=== PATIENT | male | born 1965 | race Caucasian/White ===

== ENCOUNTER 2022-05-05 08:31 | Outpatient (CLI) | payer BC, SELFPAY ==
[2022-05-05 10:21] LABS: Chloride* 101 mmol/L (96-114); Potassium* 3.4 mmol/L (3.6-5.1); Sodium* 136 mmol/L (135-149)
[2022-05-05 10:24] LABS: Alanine Aminotransferase* 29 U/L (4-50); Blood Urea Nitrogen* 17 mg/dL (7-30); Carbon Dioxide* 31 mmol/L (20-32); Cholesterol* 133 mg/dL (90-199); Estimated Glomerular Filt Rate 88 ml/min; Glucose* 97 mg/dL (60-115); Triglycerides* 108 mg/dL (40-149)
[2022-05-05 10:25] LABS: Calcium* 8.9 mg/dL (8.4-10.6); HDL Cholesterol* 43 mg/dL (>=40); LDL Cholesterol Calculated 68 mg/dL (<100)
[2022-05-05 10:53] LABS: PSA Screen* 0.52 ng/mL (0.10-4.00)
[2022-05-11 17:19] LABS: FACV Specimen Whole Blood; Factor V Leiden (F5) Mutation Heterozygous
== END 2022-05-05 08:32 | disposition home or self-care (01) ==
PROVIDERS: PCP Family Medicine; Visit Provider Family Medicine
DX: I10 Essential (primary) hypertension (principal); E78.5 Hyperlipidemia, unspecified; I82.409 Acute embolism and thrombosis of unspecified deep veins of unspecified lower extremity; Z12.5 Encounter for screening for malignant neoplasm of prostate; K50.90 Crohn's disease, unspecified, without complications; F41.1 Generalized anxiety disorder
CPT/HCPCS: 80048; 80061; 81241; 83735; 84153; 84460

== ENCOUNTER 2023-06-01 09:13 | Outpatient (CLI) | payer BC, SELFPAY ==
--- OUTSIDE RECORDS SUMMARY | 2023-06-01 09:17 | XMS_ITS | Clinical Summary ---
Author Name Unknown Organization [facility] Address [place], [place] [address] Care Team Providers Care Dry Wall Sprayer Name Role Phone Scott Mccormick Primary Care Provider [phone] Allergies Active Allergy Reactions Criticality Noted Date Comments Cat Dander Other - Describe In Comment Field 08/23/2020 Dog Dander Other - Describe In Comment Field 08/23/2020 Dust Mites Other - Describe In Comment Field 08/23/2020 House Dust Other - Describe In Comment Field 08/23/2020 Mold Other - Describe In Comment Field 08/23/2020 Tree And Shrub Pollen Other - Describe I n Comment Field 08/23/2020 Medications Medication Sig Dispensed Refills Start Date End Date Status PRILOSEC OTC 20 MG TAB 1 tablet every day 0 08/13/2006 Active DILTIAZEM SR 240 MG CAP take 1 capsule (240mg) by oral route once daily 0 08/13/2006 Active NASONEX 50 MCG/ACTUATION SPRAY inhale 2 sprays in each nostril by nasal route once daily 0 08/13/2006 Active LISINOPRIL-HYDROCHLOR OTHIAZIDE 20 MG-25 MG TAB take 1 tablet by oral route once daily 0 08/13/2006 Active fluticasone-salmetero l (ADVAIR DISKUS) 250-50 mcg/Dose diskus inhalerIndications:Mi ld persistent asthma Inhale 1 Puff by mouth every 12 hours. 3 Inhaler 0 2014 Active cetirizine (ZYRTEC) 10 mg tablet Take 1 tablet by mouth once daily. 0 01/16/2017 Active atorvastatin (LIPITOR) 40 mg tablet Take 40 mg by mouth once daily. 0 Active albuterol HFA (PROAIR HFA) 90 mcg/actuation inhalerIndications:Co ugh Inhale 1-2 Puffs by mouth every 4 hours if needed. 1 Inhaler 0 06/03/2019 Active benzonatate (Tessalon Perles) 100 mg capsuleIndications:Br onchitis with bronchospasm Take 1 Capsule (100 mg) by mouth 3 times daily if needed for Cough. 30 Capsule 0 11/05/2020 Active azithromycin (Zithromax Z-Tevin) 250 mg tabletIndications:Bro nchitis with bronchospasm Take 500 mg (2 tabs) by mouth on day 1, then 250 mg (1 tab) daily for days 2-5. 6 Tablet 0 11/05/2020 Active Active Problems Problem Noted Date Diagnosed Date Mild persistent asthma 06/07/2011 Allergic rhinitis, cause unspecified Resolved Problems Problem Noted Date Diagnosed Date Resolved Date Asthma, exercise induced Overview: Worse with exposure to allergens Immunizations Name Administration Dates Next Due COVID-19 vaccine (Scan•Jour 30mcg/0.3mL) PF, MDV 05/02/2021,09/14/2020,08/24/2020 Influenza, IIV3 (Age >=3 years) 01/23/2013,02/13,06/08/2006 Influenza, IIV4 (=>6mos) MDV 04/04/2016,01/21/20 15 Td (Age >=7 Years) 08/03/2003 Tdap 08/15/2012 Family History Medical History Relation Name Comments Other Father of pulmona ry embolism Heart Disease Mother hx [place] with CAB G and CHF Hyperlipidemia Mother Hypertension Mother Hyperlipidemia Sister 1 Lien Hyperlipidemia Sister 2 Maria Luz Relation Name Status Comments Father Mother Sister 1 Lien Sister 2 Maria Luz Social History Tobacco Use Types Packs/Day Years Used Date Smoking Tobacco: Never Smokeless Tobacco: Never Tobacco Cessation:Counseling Given: Yes Alcohol Use Standard Drinks/Week Comments Yes 0 (1 standard drink = 0.6 oz pur e alcohol) occasional use PHQ-2 Answer Date Recorded PHQ-2 Score 0 06/03/2019 Social Connections Answer Date Recorded Frequency of Communication with Friends and Fami ly Not on file 04/23/2021 Financial Resource Strain Answer Date R ecorded Difficulty of Paying Living Expenses Not on file 04/23/2021 Difficulty of Paying Living Expenses Not on file 04/23/2021 Sex and Gender Information Value Date Recorded Sex Assigned at Not on file Gender Identity Not on file Sexual Orientation Not on file Obstetrics History Last Filed Vital Signs Vital Sign Reading Time Taken Comments Blood Pressure 121/75 11/05/2020 11:59 AM CDT Pulse 87 11/05/2020 11:59 AM CDT Temperature 37 ??C (98.6 ??F) 11/05/2020 11:59 AM CDT Respiratory Rate 16 05/03/2018 1:25 PM AQUACULTURE FARM MANAGER Oxygen Saturation 98% 11/05/2020 11:59 AM CDT Inhaled Oxygen Concentration - - Weight 103.4 kg (228 lb) 11/05/2020 11:59 AM CDT Height 172.9 cm (5' 8.07) 06/03/2019 2:18 PM CS T Body Mass Index 34.6 06/03/2019 2:18 PM AQUACULTURE FARM MANAGER Plan of Treatment Health Maintenance Due Date Last Done Comments HIV for age 15-65 1980 Hepatitis C screening for age 18-79 07/08/1983 Colonoscopy through age 75 2010 Lipids for age 45-75 2010 Zoster (shingles) series for age 50+ (1 of 2) 07/08/2015 BMI (ht and wt on same day) for age 18+ 06/03/2020 06/03/2019, 01/16/2017 Depression screening for age 12+ 06/03/2020 06/03/2019, 01/16/2017 Tetanus booster 08/15/2022 08/15/2012, 08/03/2003 COVID-19 vaccine series ( season) 2022 05/02/2021, 09/14/2020, 08/24/2020 Influenza for age 50-64 12/22/2022 04/04/20 16, 01/20/2015, 01/23/2013, Additional history exists Tdap Completed 08/15/2012 Pneumococcal series for age 6-64 Aged Out No longer eligible based on patient's age to complete this topic Advance Directives Latest Code Status on File Code Status Date Activated Date Inactivated Comments Full Code 05/03/2018 10:06 AM 05/03/2018 3:50 PM Care Teams Dry Wall Sprayer Relationship Specialty Start Date End Date Scott Mccormick [address] [place] [address] PCP - General 08/13/06
--- OUTSIDE RECORDS SUMMARY | 2023-06-01 09:17 | XMS_ITS | Encounter Summary ---
Author Name Unknown Organization [facility] Address [address] [facility] [place] [address] Care Team Providers Care Shorer Name Role Phone DoctorLluvia MD Primary Care Provider Scott Cochran MD Primary Care Provider [phone] Encounter Details Date Type Department Care Team (Late st Contact Info) Description 05/01/2002 Office Visit-[facility] [address] [address] Unknown, DoctorMD Social History Tobacco Use Types Packs/Day Years Used Date Smoking Tobacco: Never Assessed Sex and Gender Information Value Date Recorded Sex Assigned at Not on file Gender Identity Not on file Sexual Orientation Not on file documented as of this encounter Progress Notes * Unknown, MD Onel - 05/28/2002 4:25 PM CST DATE: 05/01/2002 GABRIELE ADAME DATE OF : 1965 AGE: [age] years old Referring Physician: SCOTT MALONEY CURRENT DIAGNOSES 1. - Hypertension, benign, 401.1 2. - Chest Pain Precordial, 786.51 3. Chest pain, 786.50 ALLERGIES MEDICATIONS 1. Prevacid 30 mg, 1 p.o. q.d. 2. Adriana 180 mg, Dose/instruction UK CHIEF COMPLAINTS F/u holter HISTORY OF PRESENT ILLNESS I had the pleasure of meeting your patient, Mr. Gabriele Adame, today at the [facility]. As you know, he is a pleasant 36-year-old male who is referred in for both PVCs and chest pain. The patient has been aware of palpitations although he did not know what they were for many, many years. He described these as flip-flops or thuds that could come on at any time but are rather frequent.He has no dizzy spells or syncope. His second issue is of chest pain. He was actually seen in the Emergency Room for this. This is very atypical. He describes sharp one second flashes of pain in the left chest, occasionally going in the left neck or left shoulder and arm. He may feel occasionally short of breath for a moment with this. He can exercise without any problems. The chest pain does not come on with exertion and is related to food or body position. His weight has been a bit up and down, depending on his diet and his motivation to exercise. He does have six to eight caffeinated products per day which are obviously going to be an important part of the story. As you know, his Holter monitor from your office showed frequent unifocal PVCs up to 300 per times per hour. I reviewed the Holter monitor and concur with the diagnosis. There were also rare PACs and possibly one ventricular couplet and some runs of ventricular bigeminy. The patient has no history of previous heart disease. He tells me thyroid tests and regular laboratories at your office were normal. PAST HISTORY Past Medical Illnesses: PUD, allergy Surgical Procedures: oral surgery FAMILY HISTORY: Father - Age 57, kapadia rich disease, obesity; Mother - CAD and hypercholesterolemia; Sister 1 - hypercholesterolemia; Sister 2 - hypercholesterolemia; SOCIAL HISTORY Alcohol Use - drinks occasionally; Smoking - does not smoke; Diet - regular diet and 6-8 caffeine products/day; Exercise - no regular exercise; REVIEW OF SYSTEMS GENERAL denies recent weight loss, weight gain, fever or chills or change in exercise tolerance., (intentional weight change with exercise) INTEGUMENTARY denies any change in hair or nails, rashes, or skin lesions. EYES wears eye glasses/contact lenses EARS, NOSE, THROAT, MOUTH denies any hearing loss, epistaxis, hoarseness or difficulty speaking. RESPIRATORY snoring CARDIOVASCULAR chest discomfort, chest pain, palpitations ABDOMINAL denies ulcer disease, hematochezia or melena. MUSCULOSKELETAL denies any history of venous insufficiency, arthritic symptoms or back problems. NEUROLOGICAL numbness, hands and feet while sleeping PSYCHIATRIC stress ENDOCRINE denies any history of weight change, heat/cold intolerance, polydipsia, or polyuria HEMATOLOGICAL/IMMUNOLOGIC denies any food allergies, seasonal allergies, bleeding disorders. PHYSICAL EXAMINATION VITAL SIGNS: Blood Pressure: 152/92 Pulse- 84.00/min. Weight- 206.40 lbs. Height- .00 Temperature- .00 CONSTITUTIONAL cooperative, alert and oriented,well developed, well nourished, in no acute distress. SKIN warm and dry to touch, no apparent skin lesions, or masses noted. HEAD normocephalic, atraumatic EYES Pupils equal and round, conjunctivae and lids unremarkable, sclera white, no xanthalasma ENT no pallor or cyanosis, dentition good NECK carotid pulses are full and equal bilaterally, JVP normal, no carotid bruit, no thyromegaly CHEST normal symmetry, no tenderness to palpation, normal respiratory excursion, no intercostal retraction, no use of accessory muscles, clear to auscultation and percussion. CARDIAC regular rhythm, S1 normal, S2 normal, No S3 or S4, Apical impulse not displaced, no murmurs, gallops or rubs detected. ABDOMEN abdomen soft, bowel sounds normoactive, no masses, no hepatosplenomegaly, non- tender, no bruits PERIPHERAL PULSES pulses full and equal in all extremities, no bruits auscultated. EXTREMITIES & BACK no deformities, clubbing, cyanosis, erythema or edema observed. There are no spinal abnormalities noted. Normal muscle strength and tone. NEUROLOGICAL no gross motor deficits noted, affect appropriate, oriented to time, person and place. MEDICATIONS UPDATED TODAY: Prevacid 30 mg, 1 p.o. q.d., DIRECTED Adriana 180 mg, Dose/instruction UK, DIRECTED IMPRESSIONS/PLAN This patient probably has hypertension. I repeated the blood pressure several times and I always got between 140 and 150 systolic with diastolics between 90 and 106. Rather than start him on an antihypertensive, I recommended he come off caffeine completely. He probably will have some withdrawal syndrome which I warned him about. He will work on diet and exercise. I have loaned him a home blood pressure monitor to use for two weeks and we will recheck his values when he comes back in. I will also do a stress echocardiogram to assure him he does not have underlying coronary disease. We will also use the stress echocardiogram to assess for left ventricular hypertrophy. Certainly if there is left ventricular hypertrophy on the echo, it would confirm that he does indeed have high blood pressure. If he does have blood pressure, we would probably use a beta-brenda as the first treatment since this would probably treat the PVCs and the hypertension, otherwise, we can use any of the various antihypertensives. The patient will bring me his cholesterol panel after he gets the results from your office. I told him that if his heart is structurally normal on the stress test, the PVCs themselves are benign and do not require specific treatment especially since they barely bother him. Again as I mentioned above if we were to treat them, we would probably start with a beta-brenda. We would reserve the use of type IB or IC antiarrhythmics if they are severely affecting his lifestyle. If you could also forward his electrolytes, urinalysis or any other tests you may have done as partof his workup for hypertension, I would appreciate that. TODAYS ORDERS 1. Treadmill Stress Echo 1 week ALERT ECHO LAB-CHECK FOR LVH 2. Return Visit 3 weeks F/U BP AND GXT Mauricio Roberto M.D. documented in this encounter Plan of Treatment Not on file documented as of this encounter Visit Diagnoses Not on filedocumented in this encounter Care Teams Shorer Relationship Specialty Start Date End Date Doctor, Lluvia, PCP - General 06/07/01 12/21/16 Scott Maloney MD [address] [phone] PCP - General Family Practice 12/20/17 documented as of this encounter
--- OUTSIDE RECORDS SUMMARY | 2023-06-01 09:17 | XMS_ITS | Encounter Summary ---
Author Name Unknown Organization [facility] Address [address] [facility] [place] [address] Care Team Providers Care Community Center Coordinator Name Role Phone DoctorLluvia MD Primary Care Provider Scott Cochran MD Primary Care Provider [phone] Encounter Details Date Type Department Care Team (Late st Contact Info) Description 05/28/2002 Office Visit-[facility] [address] [address] Unknown, DoctorMD Social History Tobacco Use Types Packs/Day Years Used Date Smoking Tobacco: Never Assessed Sex and Gender Information Value Date Recorded Sex Assigned at Not on file Gender Identity Not on file Sexual Orientation Not on file documented as of this encounter Progress Notes * Unknown, MD Onel - 05/30/2002 1:28 PM CST DATE: 05/28/2002 GABRIELE ADAME DATE OF : 1965 AGE: [age] years old Referring Physician: SCOTT MALONEY CURRENT DIAGNOSES 1. - Hypertension, benign, 401.1 2. - Chest Pain Precordial, 786.51 3. Chest pain, 786.50 ALLERGIES MEDICATIONS 1. Prevacid 30 mg, 1 p.o. q.d. 2. Adriana 180 mg, Dose/instruction UK CHIEF COMPLAINTS F/u stress echo HISTORY OF PRESENT ILLNESS I had the pleasure of following up on our mutual patient, Gabriele Adame. Please refer back to my consult from April. Since the last visit, the patient has checked his blood pressure numerous timesat home and kept a log. His blood pressure is always normal, even though it was again high here in the doctors office, and high the day he came for a stress test. This is probably white-coat hypertension and not true hypertension. The patient performed a stress echocardiogram. There was no LVH, which again points towards the lack of high blood pressure. The stress test was otherwise completely normal without ischemia. The patient has markedly cut down his caffeine, and he has much less PVCs. He tells me his cholesterol is quite high, and you have already embarked on a program for him with diet and exercise for three months, and probable statin therapy later if he is not controlled. PAST HISTORY IMPRESSION/PLAN At this point I have discharged him from the clinic. I have given him some resources, [facility] and the [facility] to try. I also gave him an exercise prescription for his target heart rate with exercise. TODAYS ORDERS 1. Return prn Mauricio Roberto M.D. documented in this encounter Plan of Treatment Not on file documented as of this encounter Visit Diagnoses Not on filedocumented in this encounter Care Teams Community Center Coordinator Relationship Specialty Start Date End Date Lluvia Sykes MD PCP - General 06/07/01 12/21/16 Scott Maloney MD [address] [facility] [address] [phone] PCP - General Family Practice 12/20/17 documented as of this encounter
--- OUTSIDE RECORDS SUMMARY | 2023-06-01 09:17 | XMS_ITS | Clinical Summary ---
Author Name Unknown Organization [facility] Address [address] [facility] [place] [address] Care Team Providers Care Managing Member Name Role Phone Scott Mccormick MD Primary Care Provider [phone] Allergies No known active allergies Medications Medication Sig Dispensed Refills Start Date End Date Status albuterol (PROAIR HFA/PROVENTIL HFA/VENTOLIN HFA) 108 (90 Base) MCG/ACT inhaler Inhale 1-2 puffs into the lungs 0 2014 Active cetirizine (ZYRTEC) 10 MG tablet Take 10 mg by mouth 0 01/16/2017 Active citalopram (CELEXA) 10 MG tablet Take 10 mg by mouth 0 06/20/2010 Active diltiazem (TIAZAC) 240 MG 24 hr ER beaded capsule 0 08/13/2006 Active fluticasone-salmeterol (ADVAIR DISKUS) 250-50 MCG/DOSE diskus inhaler Inhale 1 puff into the lungs 0 2014 Active lisinopril-hydrochloro thiazide (PRINZIDE/ZESTORETIC) 20-25 MG per tablet 0 08/13/2006 Activ e mometasone (NASONEX) 50 MCG/ACT spray 0 08/13/2006 Active omeprazole (PRILOSEC OTC) 20 MG tablet 0 08/13/2006 Active ATORVASTATIN CALCIUM PO 0 Active Family History Medical History Relation Comments Colon Cancer Paternal Grandfather Relation Status Comments Paternal Grandfather Social History Tobacco Use Types Packs/Day Years Used Date Smoking Tobacco: Never Smokeless Tobacco: Never Alcohol Use Standard Drinks/Week Comments Yes 0 (1 standard drink = 0.6 oz pur e alcohol) 2/month Sex and Gender Information Value Date Recorded Sex Assigned at Not on file Gender Identity Not on file Sexual Orientation Not on file Last Filed Vital Signs Vital Sign Reading Time Taken Comments Blood Pressure 100/67 12/20/2017 2:20 PM CDT Pulse - - Temperature - - Respiratory Rate 21 12/20/2017 2:30 PM CDT Oxygen Saturation 94% 12/20/2017 2:30 PM CDT Inhaled Oxygen Concentration - - Weight 104.3 kg (230 lb) 12/20/2017 11:35 AM CDT Height 174 cm (5' 8.5) 12/20/2017 11:35 AM CDT Body Mass Index 34.46 12/20/2017 11:35 AM CDT Plan of Treatment Not on file Care Teams Managing Member Relationship Specialty Start Date End Date Scott Mccormick MD [address] [facility] [address] [phone] PCP - General Family Practice 12/20/17
--- OUTSIDE RECORDS SUMMARY | 2023-06-01 09:17 | XMS_ITS | Referral Summary ---
Author Name Unknown Organization [facility] Address [address] [place] [address] Care Team Providers Care Correctional Officer Chief Name Role Phone Scott Mccormick MD Primary Care Provider [phone] Allergies No known active allergies Medications Medication [...] 08/13/2006 Active ATORVASTATIN CALCIUM PO 0 Active Social History Tobacco Use Types Packs/Day Years [...] of Treatment Not on file Care Teams Correctional Officer Chief Relationship Specialty Start Date End Date Scott Mccormick MD [address] [facility] [address] [phone] PCP - General Family Practice 12/20/17
== END 2023-06-01 09:14 | disposition home or self-care (01) ==
PROVIDERS: PCP Family Medicine; Visit Provider Family Medicine
DX: Z00.00 Encounter for general adult medical examination without abnormal findings (principal); E78.5 Hyperlipidemia, unspecified; I10 Essential (primary) hypertension; D68.51 Activated protein C resistance; K50.90 Crohn's disease, unspecified, without complications; Z12.5 Encounter for screening for malignant neoplasm of prostate
CPT/HCPCS: 80048; 80061; 84460; G0103

== ENCOUNTER 2024-01-24 11:16 | Outpatient (CLI) | payer OTHER, SELFPAY ==
--- OUTSIDE RECORDS SUMMARY | 2024-01-24 11:20 | XMS_ITS | Referral Summary ---
Author Organization [facility] Address [address] [place] [address] Care Team Providers Care End Finder Twisting Department Name Role Phone Scott Mccormick MD Primary Care Provider [phone] Allergies No known active allergies Medications Medication Sig Dispensed Refills Start Date End Date Status albuterol (PROAIR HFA/PROVENTIL HFA/VENTOLIN HFA) 108 (90 Base) MCG/ACT inhaler Inhale 1-2 puffs into the lungs 2014 Active cetirizine (ZYRTEC) 10 MG tablet Take 10 mg by mouth 01/16/2017 Active citalopram (CELEXA) 10 MG tablet Take 10 mg by mouth 06/20/2010 Active diltiazem (TIAZAC) 240 MG 24 hr ER beaded capsule 08/13/2006 Active fluticasone-salmeterol (ADVAIR DISKUS) 250-50 MCG/DOSE diskus inhaler Inhale 1 puff into the lungs 2014 Active lisinopril-hydrochloro thiazide (PRINZIDE/ZESTORETIC) 20-25 MG per tablet 08/13/2006 Activ e mometasone (NASONEX) 50 MCG/ACT spray 08/13/2006 Active omeprazole (PRILOSEC OTC) 20 MG tablet 08/13/2006 Active ATORVASTATIN CALCIUM PO Active Social History Tobacco Use Types Packs/Day [...] of Treatment Not on file Care Teams End Finder Twisting Department Relationship Specialty Start Date End Date Scott Mccormick MD [address] [facility] [address] [phone] PCP - General Family Practice 12/20/17
--- OUTSIDE RECORDS SUMMARY | 2024-01-24 11:20 | XMS_ITS | Clinical Summary ---
Author Organization [facility] Address [place], [place] [address] Care Team Providers Care Magnetic Prospector Name Role Phone Scott Mccormick Primary Care Provider [phone] Allergies Active Allergy Reactions Criticality Noted Date [...] by mouth every 12 hours. 3 Inhaler prn 2014 Active cetirizine (ZYRTEC) 10 mg tablet Take 1 tablet by mouth once daily. 0 01/16/2017 Active atorvastatin (LIPITOR) 40 mg tablet Take 40 mg by mouth once daily. Active albuterol HFA (PROAIR HFA) 90 mcg/actuation inhalerIndications:Co ugh Inhale 1-2 Puffs by mouth every 4 hours if needed. 1 Inhaler 06/03/2019 Active benzonatate (Tessalon Perles) 100 mg capsuleIndications:Br onchitis with bronchospasm Take 1 Capsule (100 mg) by mouth 3 times daily if needed for Cough. 30 Capsule 11/05/2020 Active azithromycin (Zithromax Z-Tevin) 250 mg tabletIndications:Bro nchitis with bronchospasm Take 500 mg (2 tabs) by mouth on day 1, then 250 mg (1 tab) daily for days 2-5. 6 Tablet 11/05/2020 Active Active Problems Problem Noted Date Diagnosed Date Mild persistent asthma 06/07/2011 Allergic rhinitis, cause unspecified Resolved Problems Problem Noted Date Diagnosed Date Resolved Date Asthma, exercise induced Overview (04/20/2011): Worse with exposure to allergens Immunizations Name Administration Dates Next Due COVID-19 vaccine ([employer] 30mcg/0.3mL) PF, MDV 05/02/2021,09/14/2020,08/24/2020 Influenza, IIV3 (Age >=3 years) 01/23/2013,02/13,06/08/2006 Influenza, IIV4 (=>6mos) MDV 04/04/2016,01/21/20 15 Td (Age >=7 Years) 08/03/2003 Tdap 08/15/2012 Family History Medical History Relation Name Comments Other Father of pulmona ry embolism Heart Disease Mother hx [place] with CAB G and CHF Hyperlipidemia Mother [...] CDT Respiratory Rate 16 05/03/2018 1:25 PM GIS TECHNICIAN Oxygen Saturation 98% 11/05/2020 11:59 AM CDT Inhaled Oxygen Concentration - - Weight 103.4 kg (228 lb) 11/05/2020 11:59 AM CDT Height 172.9 cm (5' 8.07) 06/03/2019 2:18 PM CS T Body Mass Index 34.6 06/03/2019 2:18 PM GIS TECHNICIAN Plan of Treatment Health Maintenance Due Date [...] 08/15/2012, 08/03/2003 COVID-19 vaccine series ( season) 2023 05/02/2021, 09/14/2020, 08/24/2020 Influenza for age 50-64 12/23/2023 04/04/20 16, 01/20/2015, 01/23/2013, Additional history exists Tdap Completed 08/15/2012 Pneumococcal series for age 6-64 Aged Out No longer eligible based on patient's age to complete this topic Advance Directives * Full Code (Latest Code Status on File) Date Activated Date Inactivated Comments 05/03/2018 10:06 AM 05/03/2018 3:50 PM Care Teams Magnetic Prospector Relationship Specialty Start Date End Date Scott Mccormick [address] [place], [place] [phone] PCP - General 08/13/06
--- OUTSIDE RECORDS SUMMARY | 2024-01-24 11:20 | XMS_ITS | Encounter Summary ---
Author Organization [place] Address [address] [facility] [place] [address] Care Team Providers Care Clother In Name Role Phone Lluvia Sykes MD Primary Care Provider Scott Cochran MD Primary Care Provider [phone] Encounter Details Date Type Department Care Team (Late st Contact Info) Description 05/28/2002 Office Visit-[facility] Heart [address] [phone] Unknown, DoctorMD Social History Tobacco [...] I have given him some resources, including thebook Eight Week Cholesterol Cure and the [facility] to try. I also gave him an exercise prescription for his target heart rate with exercise. TODAYS ORDERS 1. Return prn Mauricio Roberto M.D. documented in this encounter Plan of Treatment Not on file documented as of this encounter Visit Diagnoses Not on filedocumented in this encounter Care Teams Clother In Relationship Specialty Start Date End Date Lluvia Sykes MD PCP - General 06/07/01 12/21/16 Scott Maloney MD [address] [facility] [address] [phone] PCP - General Family Practice 12/20/17 documented as of this encounter
--- OUTSIDE RECORDS SUMMARY | 2024-01-24 11:20 | XMS_ITS | Clinical Summary ---
Author Organization [place] Address [address] [place] [address] Care Team Providers Care Cardiovascular Surgeon Name Role Phone Scott Mccormick MD Primary Care Provider [phone] Allergies No known active allergies Medications Medication [...] tablet 08/13/2006 Active ATORVASTATIN CALCIUM PO Active Family History Medical History Relation Comments [...] of Treatment Not on file Care Teams Cardiovascular Surgeon Relationship Specialty Start Date End Date Scott Mccormick MD [address] [facility] [address] [phone] PCP - General Family Practice 12/20/17
--- OUTSIDE RECORDS SUMMARY | 2024-01-24 11:20 | XMS_ITS | Encounter Summary ---
Author Organization [place] Address [address] [facility] [place] [address] Care Team Providers Care Campus Recruiting Coordinator Name Role Phone Lluvia Sykes MD Primary Care Provider Scott Cochran MD Primary Care Provider [phone] Encounter Details Date Type Department Care Team (Late st Contact Info) Description 05/01/2002 Office Visit-[facility] Heart [address] [place] [phone] Unknown, DoctorMD Social History Tobacco Use [...] patient, Mr. Gabriele Adame, today at the [facility]. As you know, he is [...] on filedocumented in this encounter Care Teams Campus Recruiting Coordinator Relationship Specialty Start Date End Date Doctor, Lluvia, PCP - General 06/07/01 12/21/16 Scott Maloney MD [address] [phone] PCP - General Family Practice 12/20/17 documented as of this encounter
== END 2024-01-24 11:17 | disposition home or self-care (01) ==
LOC: FBOREF 11:17
PROVIDERS: PCP Family Medicine; Visit Provider Family Medicine
DX: E78.2 Mixed hyperlipidemia (principal); I10 Essential (primary) hypertension; R42 Dizziness and giddiness
CPT/HCPCS: 80048; 85025

== ENCOUNTER 2024-09-25 10:02 | Outpatient (CLI) | payer OTHER, SELFPAY | END 2024-09-25 10:03 | disposition home or self-care (01) | PROVIDERS: PCP Family Medicine; Visit Provider Family Medicine | DX: E78.2 Mixed hyperlipidemia (principal); I10 Essential (primary) hypertension; R53.83 Other fatigue; Z12.5 Encounter for screening for malignant neoplasm of prostate | CPT/HCPCS: 80048; 80061; 82728; 85025; G0103 ==

== ENCOUNTER 2025-02-18 08:59 | Outpatient (CLI) | payer OTHER, SELFPAY | END 2025-02-18 09:00 | disposition home or self-care (01) | PROVIDERS: PCP Family Medicine; Visit Provider Family Medicine | DX: D50.9 Iron deficiency anemia, unspecified (principal) | CPT/HCPCS: 82728; 85025 ==